=== PATIENT | male | born 1980 | race American Indian/Alaskan Native ===

== ENCOUNTER 2018-06-19 04:55 | Inpatient (IN) | payer SELFPAY ==
[2018-06-19] MEDS ORDERED: NARCAN 2 MG/2 ML ONE (05:03)
[2018-06-19] MEDS ORDERED: NACL 0.9% 1000 ML 1,000 ML IV ONE (05:13)
--- NOTE | 2018-06-19 05:25 | Emergency Department Report ---
ED General Adult HPI - General Stated complaint: UNRESPONSIVE Time Seen by Provider: 06/19/18 05:18 - History of Present Illness Initial comments: Patient is a 28-year-old male. History is limited by medical condition. Patient was found unconscious. Patient was found down in the bathroom pupils are pinpoint he was given 2 mg of Narcan by EMS. - Related Data Allergies Allergy/AdvReac Type Severity Reaction Status Date / Time Unable to Assess Allergy Unverified 06/19/18 05:55 ED Review of Systems ROS: Stated complaint: UNRESPONSIVE Other details as noted in HPI Comment: Unobtainable due to pts medical conditions ED Physical Exam - General General appearance: alert, in no apparent distress - Head Head exam: Present: atraumatic, normocephalic - Eye Eye exam: Present: other (pin point pupils ) - ENT ENT exam: Present: mucous membranes moist - Neck Neck exam: Present: normal inspection - Respiratory Respiratory exam: Present: normal lung sounds bilaterally. Absent: respiratory distress - Cardiovascular Cardiovascular Exam: Present: regular rate, normal rhythm. Absent: systolic murmur, diastolic murmur, rubs, gallop - GI/Abdominal GI/Abdominal exam: Present: soft, normal bowel sounds - Rectal Rectal exam: Present: deferred - Extremities Exam Extremities exam: Present: normal inspection - Back Exam Back exam: Present: normal inspection - Neurological Exam Neurological exam: Present: alert, oriented X3 - Psychiatric Psychiatric exam: Present: normal affect, normal mood - Skin Skin exam: Present: warm, dry, intact, normal color. Absent: rash ED Course Vital Signs 06/19/18 05:54 Pulse Rate 73 Blood Pressure 137/93 O2 Sat by Pulse 100 Oximetry - Intubation Time Out Performed: Yes Sedative: Etomidate Paralytic: Succinylcholine Laryngoscope: Stacy Size: 3 ET Tube Size: 7.5 Tube Secured Depth (cm): 24 Tube Secured Location: teeth Tube Placement Confirmation: visualized tube passing t, equal breath sounds bilat, no breath sounds over epi ED Medical Decision Making - Lab Data Result diagrams: 06/19/18 05:34 06/19/18 05:34 - Radiology Data Radiology results: report reviewed Chest x-ray: Shows no acute cardiopulmonary disease - Medical Decision Making Chief medical diagnosis: Opioid ingestion Differential medical diagnosis: Electrolyte abnormality, toxic ingestion, hypercapnia I will intubate patient will get blood work and will get ct scan of head. Critical care attestation.: If time is entered above; I have spent that time in minutes in the direct care of this critically ill patient, excluding procedure time. ED Disposition Clinical Impression: Encephalocele Respiratory failure Qualifiers: Chronicity: acute Respiratory failure complication: hypercapnia Qualified Code(s): J96.02 - Acute respiratory failure with hypercapnia Disposition: 09 OP ADMIT IP TO THIS HOSP Is pt being admited?: Yes Does the pt Need Aspirin: No Condition: Stable
[2018-06-19] MEDS ORDERED: VASELINE LIP THERAPY TP PRN (05:39)
[2018-06-19] MEDS ORDERED: ARTIFICIAL TEARS OPHTH OINT OU PRN (05:39)
[2018-06-19 05:54] LABS: Basophils % (Auto) 0.5 % (0.0-1.8); Eosinophils # (Auto) 0.3 K/mm3 (0.0-0.4); Eosinophils % (Auto) 3.3 % (0.0-4.3); Hematocrit 42.4 % (35.5-45.6); Lymphocytes # (Auto) 2.7 K/mm3 (1.2-5.4); Lymphocytes % (Auto) 33.6 % (13.4-35.0); Mean Corpuscular HGB Conc 33 % (32-34); Mean Corpuscular Volume 85 fl (84-94); Monocytes # (Auto) 0.8 K/mm3 (0.0-0.8); Platelet Count 323 K/mm3 (140-440); Red Blood Count 4.97 M/mm3 (3.65-5.03)
[2018-06-19] MEDS ORDERED: DIPRIVAN 10 MG/ML 1,000 MG/100 ML BOTTLE IV SCH (06:00)
[2018-06-19 06:06] LABS: Partial Thromboplastin Time 27.9 Sec. (24.2-36.6)
[2018-06-19 06:27] LABS: Alanine Aminotransferase 40 units/L (7-56); Albumin 4.4 g/dL (3.9-5); BUN/Creatinine Ratio 21; Blood Urea Nitrogen 21 mg/dL (9-20); Calcium 8.9 mg/dL (8.4-10.2); Hemolysis Index 29
--- NOTE | 2018-06-19 06:27 | XRay Report ---
PROCEDURE: XR CHEST 1V AP TECHNIQUE: Chest radiograph single view. HISTORY: ETT placement COMPARISONS: 06/19/2018 . FINDINGS: Heart: The heart is mildly enlarged.. Mediastinum/Vessels: The lungs remain diffusely congested.. Lungs/Pleural space: There is bilateral interstitial edema. Pleural fluid is not seen.. Bony thorax: No acute osseous abnormality. Life support devices: The endotracheal tube is not seen on the image.. IMPRESSION: Stable pulmonary congestion with interstitial edema. The ET tube is not seen on the imag e.. This document is electronically signed by Flo Raza MD., June 19 2018 05:51:00 AM ET
[2018-06-19 06:28] LABS: INR 1.2 (0.87-1.13)
[2018-06-19] MEDS ORDERED: NARCAN 2 MG/2 ML IV ONE (06:58)
[2018-06-19] MEDS ORDERED: KETALAR ONE (07:20)
[2018-06-19] MEDS ORDERED: QUELICIN ONE (07:20)
[2018-06-19] MEDS ORDERED: AMIDATE IV ONE (07:20)
--- NOTE | 2018-06-19 07:42 | Emergency Department Report ---
Katherine Doc - Documentation Documentation: 28-year-old male who has been called to the hospitalist staff ready for admissi on. They requested that the patient receive a CT of his head prior to accepting the admission per Dr. Zimmerman. Therefore this task was signed out to me. In the interim the patient became quite agitated and the nurses informed me. He was given ketamine and rocuronium IV to facilitate his CT scan. He does have persistent miotic pupils. However the nurses report to me that he was moving all extremities normally. On exam his endotracheal tube is in place and he is being ventilated. His pulse oximetry read 96% after initial sedation with bolus propofol. He has now had a CT scan. I have checked his endotracheal tube placement. The tube seems a bit small size but is in his trachea. He also did have interstitial edema. I do not see any acute finding on his CT head which was grossly evident. Therefore he will be called into the hospitalist service again for further care and evaluation. Critical care time with this patient is 40 minutes.
--- NOTE | 2018-06-19 07:49 | XRay Report ---
PROCEDURE: XR CHEST 1V AP TECHNIQUE: Chest radiograph single view. HISTORY: once COMPARISONS: 06/19/2018 . FINDINGS: Heart: The heart is mildly enlarged.. Mediastinum/Vessels: The lungs are no longer congested.. There is slight thickening of the right para tracheal stripe. Adenopathy cannot be excluded. Lungs/Pleural space: There is residual patchy airspace disease in the right upper lobe.. Bony thorax: No acute osseous abnormality. Life support devices: The tip of the ET tube is 6 cm above the eliceo. The NG tube is noted coursing into the stomach.. IMPRESSION: Cardiomegaly with interval resolution of pulmonary congestion. Residual patchy airspace disease in th e right upper lobe noted. Thickening of the right paratracheal stripe noted. Adenopathy cannot be excluded. Computed tomography of the chest with IV contrast recommended for further evaluation. Positions of the ET tube and NG tube as described. This document is electronically signed by Flo Raza MD., June 19 2018 06:55:19 AM ET
[2018-06-19 07:50] LABS: Bilirubin,Urine NEG (Negative); Blood,Urine NEG (Negative); Color,Urine Yellow (Yellow); Mucus,Urine 1+ /HPF; Urobilinogen,Urine < 2.0 mg/dL (<2.0)
[2018-06-19 07:59] LABS: Benzodiazepines Screen,Urine PRESUMPTIVE NEGATIVE; Cannabinoid Screen,Urine PRESUMPTIVE NEGATIVE; Cocaine Screen,Urine PRESUMPTIVE NEGATIVE; Methadone Screen,Urine PRESUMPTIVE NEGATIVE; Opiate Screen,Urine PRESUMPTIVE NEGATIVE
[2018-06-19 08:17] LABS: Amphetamine Screen,Urine PRESUMPTIVE POSITIVE
--- NOTE | 2018-06-19 08:47 | Cat Scan Report ---
PROCEDURE: CT HEAD/BRAIN WO CON TECHNIQUE: Computerized tomography of the head was performed without contrast material. HISTORY: Altered Mental Status COMPARISONS: None . FINDINGS: The ventricles, cisterns and sulci are within normal limits. No intra parenchymal or extra-axial mas s, hemorrhage, or mass effect. Echavarria and white-matter differentiation is within normal limits. Normal spherical shape of the globes. No significant abnormalities within the paranasal sinuses and m astoid air cells. Mild mucosal thickening within the partially and left maxillary sinus. Mucosal thic kening within the nasal passages extends into the posterior nasopharynx, also partially imaged and as sociated with intubation. No skull or facial fracture visualized. IMPRESSION: No acute intracranial abnormality. This document is electronically signed by Malachi Garcia MD., June 19 2018 07:42:15 AM ET
[2018-06-19] MEDS ORDERED: HALDOL IV PRN (10:10)
[2018-06-19] MEDS ORDERED: BENADRYL IV PRN (10:11)
[2018-06-19] MEDS ORDERED: ATIVAN IV PRN (10:11)
[2018-06-19] MEDS ORDERED: ZOFRAN IV PRN (12:54)
[2018-06-19] MEDS ORDERED: SODIUM CHLORIDE FLUSH SYRINGE 10 ML IV PRN (12:54)
[2018-06-19] MEDS ORDERED: APRESOLINE IV PRN (12:57)
[2018-06-19] MEDS ORDERED: NACL 0.45% 500 ML IV SCH (13:00)
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
[2018-06-19] MEDS: SODIUM CHLORIDE FLUSH SYRINGE 10 ML IV SCH (22:45)
[2018-06-20 07:41] LABS: Basophils % (Auto) 0.3 % (0.0-1.8); Eosinophils # (Auto) 0.5 K/mm3 (0.0-0.4); Eosinophils % (Auto) 4.2 % (0.0-4.3); Hematocrit 40.1 % (35.5-45.6); Hemoglobin 13.4 gm/dl (11.8-15.2); Lymphocytes # (Auto) 2.8 K/mm3 (1.2-5.4); Lymphocytes % (Auto) 22.7 % (13.4-35.0); Mean Corpuscular HGB Conc 34 % (32-34); Mean Corpuscular Volume 84 fl (84-94); Monocytes % (Auto) 8.3 % (0.0-7.3); Platelet Count 300 K/mm3 (140-440); Red Blood Count 4.75 M/mm3 (3.65-5.03); Red Cell Distribution Width 13.9 % (13.2-15.2)
[2018-06-20 07:59] LABS: BUN/Creatinine Ratio 16; Blood Urea Nitrogen 14 mg/dL (9-20); Calcium 8.7 mg/dL (8.4-10.2); Hemolysis Index 7
--- NOTE | 2018-06-20 09:10 | XRay Report ---
PROCEDURE: XR CHEST ROUTINE 2V TECHNIQUE: Chest, PA and lateral HISTORY: abnormal cxr COMPARISON: 06/19/2018 FINDINGS: The heart size is normal. There is no pulmonary vascular congestion seen. Mediastinal contours are normal. Lungs are clear. Previously seen right upper lobe infiltrate has resolved. There is no pleural effusion seen. There is no pneumothorax seen. IMPRESSION: No acute abnormality identified. This document is electronically signed by America Patel MD., June 20 2018 09:08:40 AM ET
[2018-06-20] MEDS: TYLENOL PO PRN (11:06)
[2018-06-20] MEDS: SODIUM CHLORIDE FLUSH SYRINGE 10 ML IV SCH ×2 (11:06→21:24)
--- NOTE | 2018-06-20 14:01 | Progress Note ---
Assessment and Plan Assessment and plan: Possible PNA, probably aspiration -On IV levofloxacin -sputum culture pending Acute toxic encephalopathy -Secondary to amphetamine use -resolved -Head CT scan negative Flash pulmonary edema -Resolved Impending respiratory failure with hypoxia -Status post intubation, now extubated Mild hyperkalemia -resolved Elevated blood pressure without prior diagnosis of hypertension -Blood pressure improved, will monitor Polysubstance abuse(tobacco and amphetamine) -pt reported using her sister's phentanyl patch prior to the incident bs he was having severe back pain -pt counseled on cessation Chronic lower back pain -for out-pt f/u DVT prophylaxis with SCD Disposition: For possible d/c in 1-2 days if clinically stable History Interval history: Pt complained of productive cough with some blood specks. Hospitalist Physical - Constitutional Vitals: Temp Pulse Resp BP Pulse Ox 98.6 F 89 18 128/84 97 06/20/18 09:13 06/20/18 09:13 06/20/18 09:13 06/20/18 09:13 06/20/18 09:13 General appearance: Present: no acute distress, well-nourished - EENT Eyes: Present: PERRL, EOM intact ENT: hearing intact, clear oral mucosa - Neck Neck: Present: supple - Respiratory Respiratory effort: normal Respiratory: bilateral: CTA - Cardiovascular Rhythm: regular Heart Sounds: Present: S1 & S2 - Extremities Extremities: No edema - Abdominal General gastrointestinal: soft, non-tender, non-distended, normal bowel sounds - Neurologic Neurologic: CNII-XII intact Results - Labs CBC & Chem 7: 06/20/18 07:00 06/20/18 07:00 Labs: Laboratory Last Values WBC 12.4 K/mm3 (4.5-11.0) H 06/20/18 07:00 RBC 4.75 M/mm3 (3.65-5.03) 06/20/18 07:00 Hgb 13.4 gm/dl (11.8-15.2) 06/20/18 07:00 Hct 40.1 % (35.5-45.6) 06/20/18 07:00 MCV 84 fl (84-94) 06/20/18 07:00 MCH 28 pg (28-32) 06/20/18 07:00 MCHC 34 % (32-34) 06/20/18 07:00 RDW 13.9 % (13.2-15.2) 06/20/18 07:00 Plt Count 300 K/mm3 (140-440) 06/20/18 07:00 Lymph % (Auto) 22.7 % (13.4-35.0) 06/20/18 07:00 [place] % (Auto) 8.3 % (0.0-7.3) H 06/20/18 07:00 Eos % (Auto) 4.2 % (0.0-4.3) 06/20/18 07:00 Baso % (Auto) 0.3 % (0.0-1.8) 06/20/18 07:00 Lymph # 2.8 K/mm3 (1.2-5.4) 06/20/18 07:00 [place] # 1.0 K/mm3 (0.0-0.8) H 06/20/18 07:00 Eos # 0.5 K/mm3 (0.0-0.4) H 06/20/18 07:00 Baso # 0.0 K/mm3 (0.0-0.1) 06/20/18 07:00 Seg Neutrophils % 64.5 % (40.0-70.0) 06/20/18 07:00 Seg Neutrophils # 8.0 K/mm3 (1.8-7.7) H 06/20/18 07:00 PT 16.0 Sec. (12.2-14.9) H 06/19/18 05:34 INR 1.20 (0.87-1.13) H 06/19/18 05:34 APTT 27.9 Sec. (24.2-36.6) 06/19/18 05:34 POC ABG pH 7.278 (7.35-7.45) L 06/19/18 06:27 POC ABG pCO2 55.7 (35-45) H 06/19/18 06:27 POC ABG pO2 364 (80-105) H 06/19/18 06:27 POC ABG HCO3 26.1 06/19/18 06:27 POC ABG Total CO2 28 06/19/18 06:27 POC ABG O2 Sat 100 06/19/18 06:27 POC ABG Base Excess -1 06/19/18 06:27 FiO2 100 % 06/19/18 06:27 Sodium 138 mmol/L (137-145) 06/20/18 07:00 Potassium 4.1 mmol/L (3.6-5.0) D 06/20/18 07:00 Chloride 100.5 mmol/L (98-107) 06/20/18 07:00 Carbon Dioxide 25 mmol/L (22-30) 06/20/18 07:00 Anion Gap 17 mmol/L 06/20/18 07:00 BUN 14 mg/dL (9-20) 06/20/18 07:00 Creatinine 0.9 mg/dL (0.8-1.5) 06/20/18 07:00 Estimated GFR > 60 ml/min 06/20/18 07:00 BUN/Creatinine Ratio 16 % 06/20/18 07:00 Glucose 87 mg/dL (75-100) 06/20/18 07:00 Lactic Acid 1.00 mmol/L (0.7-2.0) 06/19/18 05:34 Calcium 8.7 mg/dL (8.4-10.2) 06/20/18 07:00 Total Bilirubin 0.50 mg/dL (0.1-1.2) 06/19/18 05:34 AST 119 units/L (5-40) H 06/19/18 05:34 ALT 40 units/L (7-56) 06/19/18 05:34 Alkaline Phosphatase 33 units/L (35-129) L 06/19/18 05:34 Troponin T < 0.010 ng/mL (0.00-0.029) 06/19/18 05:34 Total Protein 8.3 g/dL (6.3-8.2) H 06/19/18 05:34 Albumin 4.4 g/dL (3.9-5) 06/19/18 05:34 Albumin/Globulin Ratio 1.1 % 06/19/18 05:34 Urine Color Yellow (Yellow) 06/19/18 07:09 Urine Turbidity Clear (Clear) 06/19/18 07:09 Urine pH 5.0 (5.0-7.0) 06/19/18 07:09 Ur Specific [place] 1.031 (1.003-1.030) H 06/19/18 07:09 Urine Protein 30 mg/dl mg/dL (Negative) 06/19/18 07:09 Urine Glucose (UA) Neg mg/dL (Negative) 06/19/18 07:09 Urine Ketones Neg mg/dL (Negative) 06/19/18 07:09 Urine Blood Neg (Negative) 06/19/18 07:09 Urine Nitrite Neg (Negative) 06/19/18 07:09 Urine Bilirubin Neg (Negative) 06/19/18 07:09 Urine Urobilinogen < 2.0 mg/dL (<2.0) 06/19/18 07:09 Ur Leukocyte Esterase Neg (Negative) 06/19/18 07:09 Urine WBC (Auto) 1.0 /HPF (0.0-6.0) 06/19/18 07:09 Urine RBC (Auto) 3.0 /HPF (0.0-6.0) 06/19/18 07:09 Urine Mucus 1+ /HPF 06/19/18 07:09 Salicylates < 0.3 mg/dL (2.8-20.0) L 06/19/18 05:34 Urine Opiates Screen Presumptive negative 06/19/18 07:09 Urine Methadone Screen Presumptive negative 06/19/18 07:09 Acetaminophen < 5.0 ug/mL (10.0-30.0) L 06/19/18 05:34 Ur Barbiturates Screen Presumptive negative 06/19/18 07:09 Ur Phencyclidine Scrn Presumptive negative 06/19/18 07:09 Ur Amphetamines Screen Presumptive positive 06/19/18 07:09 U Benzodiazepines Scrn Presumptive negative 06/19/18 07:09 Urine Cocaine Screen Presumptive negative 06/19/18 07:09 U Marijuana (THC) Screen Presumptive negative 06/19/18 07:09 Drugs of Abuse Note Disclamer 06/19/18 07:09 Plasma/Serum Alcohol < 0.01 % (0-0.07) 06/19/18 05:34
[2018-06-20] MEDS: LEVAQUIN 750MG/150ML 750 MG/150 ML BAG IV SCH (18:43)
--- NOTE | 2018-06-20 23:50 | XRay Report ---
XR CHEST 1V AP CLINICAL INDICATION: Male, 38 years of age. Altered Mental Status COMPARISON: None available. Images submitted for interpretation on June 20, 2018 at 2327 hours yesterday. Findings: Frontal view(s) of the chest obtained. Heart borderline enlarged. Shallow inspiration. Mamma Logist wding the bronchovascular markings with prominence of pulmonary vasculature and interstitium concerni ng for mild central congestion. No gross pneumothorax. IMPRESSION: Findings concerning for mild central congestion. This document is electronically signed by Johanna Sheehan DO., June 20 2018 11:48:20 PM ET
[2018-06-21] MEDS: TYLENOL PO PRN (04:46)
[2018-06-21 06:08] LABS: Basophils # (Auto) 0.1 K/mm3 (0.0-0.1); Basophils % (Auto) 0.5 % (0.0-1.8); Eosinophils # (Auto) 0.6 K/mm3 (0.0-0.4); Eosinophils % (Auto) 5.1 % (0.0-4.3); Hematocrit 40.4 % (35.5-45.6); Hemoglobin 13.7 gm/dl (11.8-15.2); Lymphocytes # (Auto) 2.4 K/mm3 (1.2-5.4); Lymphocytes % (Auto) 19.2 % (13.4-35.0); Mean Corpuscular HGB Conc 34 % (32-34); Mean Corpuscular Volume 84 fl (84-94); Monocytes # (Auto) 1.3 K/mm3 (0.0-0.8); Platelet Count 325 K/mm3 (140-440); Red Blood Count 4.79 M/mm3 (3.65-5.03); Red Cell Distribution Width 13.7 % (13.2-15.2)
[2018-06-21] MEDS: LEVAQUIN 750MG/150ML 750 MG/150 ML BAG IV SCH (09:12)
[2018-06-21] MEDS: SODIUM CHLORIDE FLUSH SYRINGE 10 ML IV SCH (09:12)
[2018-06-21 11:50] VITALS: BP 113/71
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
== END 2018-06-21 15:27 | disposition home or self-care (01) | DRG 208 ==
LOC: ED 04:55 → EDBD 07:54 → CC1 07:54 → 4A 12:13
PROVIDERS: ADMIT Internal Medicine; ATTEND Internal Medicine
PROC: 4A033R1 Measurement of Arterial Saturation, Peripheral, Percutaneous Approach (ICD-10-PCS; principal; 2018-06-19)
PROC: 5A1935Z Respiratory Ventilation, Less than 24 Consecutive Hours (ICD-10-PCS; 2018-06-19)
PROC: 0BH17EZ Insertion of Endotracheal Airway into Trachea, Via Natural or Artificial Opening (ICD-10-PCS; 2018-06-19)
DX: J69.0 Pneumonitis due to inhalation of food and vomit (principal); G92 Toxic encephalopathy; J96.02 Acute respiratory failure with hypercapnia; Q01.9 Encephalocele, unspecified; F17.210 Nicotine dependence, cigarettes, uncomplicated; T43.625A Adverse effect of amphetamines, initial encounter; Y92.89 Other specified places as the place of occurrence of the external cause; E87.5 Hyperkalemia; F15.10 Other stimulant abuse, uncomplicated; M54.5 Low back pain; G89.29 Other chronic pain; R03.0 Elevated blood-pressure reading, without diagnosis of hypertension
CPT/HCPCS: 36415; 70450; 71045; 71046; 80048; 80053; 80307; 80320; 81001; 82140; 82803; 84484; 85025; 85610; 85730; 87205; 94002; 99406; G0378; G0480; J0330; J1956; J2310; J2704; J7030

== ENCOUNTER 2018-08-25 22:36 | Emergency (ER) | payer OTHER ==
[2018-08-25] MEDS ORDERED: IBUPROFEN PO ONE (23:51)
--- NOTE | 2018-08-25 23:51 | Emergency Department Report ---
ED Rash HPI - HPI Chief Complaint: Skin/Abscess/Foreign Body Stated Complaint: SPIDER BITE Time Seen by Provider: 08/25/18 23:27 Duration: 2 Days Location: Upper Extremities Suspected Cause: Unknown Rash Symptoms: Yes Blistering, Yes Fever, No Itching, No Facial Swelling, No Tongue/Oral Swelling, No Breathing Difficulties, No Choking Sensation, No Wheezing/Dyspnea, No Peeling, No Lightheaded, No Malaise, No Myalgias Severity: mild Other History: Mrs. Armenta is a 38-year-old male who presents with that by possible spider bite at the right upper bicep. Lesion has been present for the past 2 days. 3 cm in size Low-grade temperature noticed in triage ED Review of Systems ROS: Stated complaint: SPIDER BITE Other details as noted in HPI Constitutional: fever. denies: malaise Skin: rash, lesions, change in color ED Past Medical Hx - Past Medical History Previous Medical History?: Yes Hx Psychiatric Treatment: Yes (alcohol abuse) Additional medical history: pt unresponsive, unable to ubtain - Surgical History Past Surgical History?: No - Social History Smoking Status: Current Every Day Smoker Substance Use Type: Alcohol - Medications Home Medications: Home Medications Medication Instructions Recorded Confirmed Last Taken Type levoFLOXacin [Levaquin] 750 mg PO QDAY #3 tablet 06/21/18 Unknown Rx Neomycn/Bacitrc/Polymyx/Pramox 1 applic TP BID 10 Days #1 08/25/18 Unknown Rx [Triple Antibiotic Plus Ointmnt] oint...g. Sulfamethoxazole/Trimethoprim 1 each PO BID 10 Days #20 tablet 08/25/18 Unknown Rx [Bactrim DS TAB] Rash Exam - Exam General: Vital signs noted. No distress. Alert and acting appropriately. HEENT: No Periorbital Edema, No Conjuctival Injection, No Chemosis, No Perioral Edema, No Tongue Edema, No Uvular Edema, No Compromised Airway, No Drooling Lungs: No Wheezes, No Ronchi, No Stridor, No Cough, No Labored Respirations, No Retractions, No Use of Accessory Muscles Skin: No Other (3 cm area of redness with central necrotic ulcer) Other: Positive: Neurologic Normal ED Course Vital Signs 08/25/18 08/25/18 22:52 23:22 Temperature 100.0 F H Pulse Rate 112 H Respiratory 20 16 Rate Blood Pressure 134/82 [Right] O2 Sat by Pulse 99 Oximetry ED Medical Decision Making - Medical Decision Making Mr. Armenta presents with a suspected spider bite and small area of surrounding cellulitis. Prescribed Bactrim and antibiotic ointment. Critical care attestation.: If time is entered above; I have spent that time in minutes in the direct care of this critically ill patient, excluding procedure time. ED Disposition Clinical Impression: Spider bite wound, Cellulitis of right arm Disposition: DC-01 TO HOME OR SELFCARE Is pt being admited?: No Does the pt Need Aspirin: No Condition: Stable Instructions: Brown Recluse Spider Bite (ED) Prescriptions: Sulfamethoxazole/Trimethoprim [Bactrim DS TAB] 1 each PO BID 10 Days #20 tablet Neomycn/Bacitrc/Polymyx/Pramox [Triple Antibiotic Plus Ointmnt] 1 applic TP BID 10 Days #1 oint...g.
[2018-08-25] MEDS ORDERED: BACTRIM DS PO ONE (23:52)
[2018-08-26 00:57] VITALS: BP 126/81
== END 2018-08-26 00:15 | disposition home or self-care (01) ==
LOC: ED 22:36
DX: T63.301A Toxic effect of unspecified spider venom, accidental (unintentional), initial encounter (principal); L03.113 Cellulitis of right upper limb; Y92.9 Unspecified place or not applicable
CPT/HCPCS: 99282

== ENCOUNTER 2019-06-07 12:41 | Emergency (ER) | payer SELFPAY ==
[2019-06-07 13:17] VITALS: BP 158/72
--- NOTE | 2019-06-07 13:19 | Event Note ---
ED Screening Note ED Screening Note: states that he smoked "alot of marijuana last night" drank alcohol last night states he is "going crazy" no SI/HI no hallucinations exhibiting very strange behavior disorganized speech exhibiting paranoia This initial assessment/diagnostic orders/clinical plan/treatment(s) is/are subject to change based on patients health status, clinical progression and re- assessment by fellow clinical providers in the ED. Further treatment and workup at subsequent clinical providers discretion. Patient/guardian urged not to elope from the ED as their condition may be serious if not clinically assessed and managed. Initial orders include: medical clearance for psych will send to MAIN
[2019-06-07 14:37] LABS: Bilirubin,Urine NEG (Negative); Blood,Urine SM (Negative); Color,Urine Yellow (Yellow); Mucus,Urine 1+ /HPF; Sperm,Urine 2+ /HPF (NP); Urobilinogen,Urine < 2.0 mg/dL (<2.0)
[2019-06-07 14:42] LABS: Cocaine Screen,Urine PRESUMPTIVE NEGATIVE; Methadone Screen,Urine PRESUMPTIVE NEGATIVE; Opiate Screen,Urine PRESUMPTIVE NEGATIVE
[2019-06-07 15:00] LABS: Amphetamine Screen,Urine PRESUMPTIVE POSITIVE; Benzodiazepines Screen,Urine PRESUMPTIVE POSITIVE; Cannabinoid Screen,Urine PRESUMPTIVE POSITIVE
== END 2019-06-07 19:30 | disposition left against medical advice (07) ==
LOC: ED 12:41
DX: F22 Delusional disorders (principal); Z53.21 Procedure and treatment not carried out due to patient leaving prior to being seen by health care provider
CPT/HCPCS: 80307; 81001; 87086

== ENCOUNTER 2021-02-18 18:42 | Emergency (ER) | payer SELFPAY ==
[2021-02-18 19:52] LABS: Basophils # (Auto) 0.1 K/mm3 (0.0-0.1); Basophils % (Auto) 0.5 % (0.0-1.8); Eosinophils # (Auto) 0.1 K/mm3 (0.0-0.4); Eosinophils % (Auto) 0.9 % (0.0-4.3); Hematocrit 45.1 % (35.5-45.6); Hemoglobin 14.9 gm/dl (11.8-15.2); Lymphocytes # (Auto) 2.4 K/mm3 (1.2-5.4); Lymphocytes % (Auto) 21.6 % (13.4-35.0); Mean Corpuscular HGB Conc 33 % (32-34); Mean Corpuscular Volume 85 fl (84-94); Monocytes # (Auto) 1.2 K/mm3 (0.0-0.8); Monocytes % (Auto) 10.5 % (0.0-7.3); Platelet Count 499 K/mm3 (140-440); Red Blood Count 5.31 M/mm3 (3.65-5.03); Red Cell Distribution Width 12.9 % (13.2-15.2)
[2021-02-18 20:46] LABS: Calcium 9.5 mg/dL (8.4-10.2)
[2021-02-18 20:58] LABS: Free T4 (Free Thyroxine) 1.4 ng/dL (0.76-1.46)
[2021-02-18] MEDS ORDERED: diphenhydrAMINE 50 MG/ML VIAL IV ONE (21:30)
--- NOTE | 2021-02-18 21:33 | Emergency Department Report ---
ED Psych HPI - General Chief Complaint: Psych Stated Complaint: MENTAL EVALUATION Time Seen by Provider: 02/18/21 20:04 Source: EMS Mode of arrival: Ambulatory - History of Present Illness Initial Comments: Patient is 41 years old male with history of schizophrenia. Patient brought to the emergency room by his family for mental health evaluation. Patient stated that he is having auditory and visual hallucination. Patient stated that he used methamphetamine and marijuana recently and that make it worse. Patient is currently denying any suicidal or homicidal ideation. Patient with significant tardive dyskinesia. MD Complaint: altered mental status -: days(s) Associated Psychiatric Symptoms: racing thoughts, auditory hallucinations, visual hallucinations Quality: constant Context: recent drug abuse Associated Symptoms: denies other symptoms Treatments Prior to Arrival: none - Related Data Previous Rx's Medication Instructions Recorded Last Taken Type levoFLOXacin [Levaquin] 750 mg PO QDAY #3 tablet 06/21/18 Unknown Rx Neomycn/Bacitrc/Polymyx/Pramox 1 applic TP BID 10 Days #1 08/25/18 Unknown Rx [Triple Antibiotic Plus Ointmnt] oint...g. Sulfamethoxazole/Trimethoprim 1 each PO BID 10 Days #20 tablet 08/25/18 Unknown Rx [Bactrim DS TAB] propranoloL [Inderal] 20 mg PO BID 10 Days #60 tablet 02/19/21 Unknown Rx Allergies Allergy/AdvReac Type Severity Reaction Status Date / Time Penicillins AdvReac Hives Verified 02/18/21 18:55 ED Review of Systems ROS: Stated complaint: MENTAL EVALUATION Other details as noted in HPI Comment: All other systems reviewed and negative Constitutional: denies: chills, fever Respiratory: denies: cough, shortness of breath, SOB with exertion, SOB at rest Cardiovascular: denies: chest pain, palpitations Gastrointestinal: denies: abdominal pain, nausea, vomiting Neurological: denies: headache, weakness, numbness, paresthesias, confusion, abnormal gait Psychiatric: auditory hallucinations, visual hallucinations. denies: homicidal thoughts, suicidal thoughts ED Past Medical Hx - Past Medical History Hx Psychiatric Treatment: Yes (alcohol abuse) Additional medical history: pt unresponsive, unable to ubtain. bi-polar schizophrenia - Social History Smoking Status: Current Every Day Smoker Substance Use Type: Alcohol, Marijuana - Medications Home Medications: Home Medications Medication Instructions Recorded Confirmed Last Taken Type levoFLOXacin [Levaquin] 750 mg PO QDAY #3 tablet 06/21/18 02/18/21 Unknown Rx Neomycn/Bacitrc/Polymyx/Pramox 1 applic TP BID 10 Days #1 08/25/18 02/18/21 Unknown Rx [Triple Antibiotic Plus Ointmnt] oint...g. Sulfamethoxazole/Trimethoprim 1 each PO BID 10 Days #20 tablet 08/25/18 02/18/21 Unknown Rx [Bactrim DS TAB] propranoloL [Inderal] 20 mg PO BID 10 Days #60 tablet 02/19/21 Unknown Rx ED Physical Exam - General Limitations: No Limitations General appearance: alert, in no apparent distress - Head Head exam: Present: atraumatic, normocephalic, normal inspection - Eye Eye exam: Present: normal appearance, PERRL - ENT ENT exam: Present: normal exam, normal orophraynx, mucous membranes moist - Neck Neck exam: Present: normal inspection, full ROM. Absent: tenderness, meningismus - Respiratory Respiratory exam: Present: normal lung sounds bilaterally - Cardiovascular Cardiovascular Exam: Present: regular rate, normal rhythm, normal heart sounds - GI/Abdominal GI/Abdominal exam: Present: soft, normal bowel sounds. Absent: distended, tenderness, guarding, rebound, rigid, organomegaly (Admit), mass, bruit, pulsatile mass, hernia - Extremities Exam Extremities exam: Present: normal inspection, full ROM, normal capillary refill. Absent: tenderness - Back Exam Back exam: Present: normal inspection, full ROM. Absent: CVA tenderness (R), CVA tenderness (L) - Neurological Exam Neurological exam: Present: alert, oriented X3, CN II-XII intact, normal gait, reflexes normal - Psychiatric Psychiatric exam: Present: anxious. Absent: homicidal ideation, suicidal ideation - Skin Skin exam: Present: warm, intact, normal color ED Course Vital Signs 02/18/21 02/19/21 02/19/21 18:54 11:01 11:11 Temperature 98.3 F 98.5 F Pulse Rate 115 H 96 H Respiratory 16 16 Rate Blood Pressure Blood Pressure 101/72 134/87 [Right] O2 Sat by Pulse 96 100 100 Oximetry 02/19/21 11:57 Temperature Pulse Rate 96 H Respiratory Rate Blood Pressure 134/87 Blood Pressure [Right] O2 Sat by Pulse Oximetry ED Medical Decision Making - Lab Data Result diagrams: 02/18/21 19:09 02/18/21 19:09 Critical care attestation.: If time is entered above; I have spent that time in minutes in the direct care of this critically ill patient, excluding procedure time. ED Disposition Clinical Impression: Schizophrenia, Mood disorder, Substance abuse Disposition: HOME / SELF CARE / HOMELESS Is pt being admited?: No Condition: Stable Instructions: Substance Use Disorder and Mental Illness Additional Instructions: Professional and Agency Contacts To help [facility](10/11) [place] Crisis Line: Suicide Prevention Line: Crisis Text Line: Text START to [phone] Emergency: 911 Outpatient COMMUNITY Behavioral Health Resources: YOAV: [facility] [address] [place], [place] [address] JOHN: [facility] [address] [place] [address] PRAVEEN: [facility] - [address] [place] [address] Thursday thru Thursday - 8am - 5pm [facility] Address: [address] [place] [address] TEMI: [facility] Address: [address] [place] [address] Thursday thru Thursday- 7am-2pm [facility] Address: [address] [place] [address] Thursday thru Thursday: 8:30AM-5PM Prescriptions: propranoloL [Inderal] 20 mg PO BID 10 Days #60 tablet Referrals: PRIMARY CARE,MD [Primary Care Provider] - 3-5 Days
[2021-02-18] MEDS ORDERED: SODIUM CHLORIDE 0.9% 1000 ML 1,000 ML IV ONE (22:33)
[2021-02-19 02:16] LABS: Bilirubin,Urine NEG (Negative); Blood,Urine NEG (Negative); Color,Urine Yellow (Yellow); Mucus,Urine 1+ /HPF
[2021-02-19 02:25] LABS: Amphetamine Screen,Urine PRESUMPTIVE POSITIVE; Benzodiazepines Screen,Urine PRESUMPTIVE NEGATIVE; Cannabinoid Screen,Urine PRESUMPTIVE POSITIVE; Cocaine Screen,Urine PRESUMPTIVE NEGATIVE; Methadone Screen,Urine PRESUMPTIVE NEGATIVE; Opiate Screen,Urine PRESUMPTIVE NEGATIVE
[2021-02-19] MEDS ORDERED: diphenhydrAMINE 50 MG/ML VIAL IV ONE (03:39)
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
[2021-02-19 11:02] VITALS: BP 134/87
[2021-02-19] MEDS ORDERED: PROPRANOLOL 10 MG TAB PO NR (12:00)
--- NOTE | 2021-02-19 12:21 | Event Note ---
Date: 02/19/21 Patient is calm and cooperative. Denies any SI, HI, hallucinations. Patient seen, evaluated, and cleared by psychiatry team. Outpatient follow-up information given. Patient will be discharged at this time.
== END 2021-02-19 12:47 | disposition home or self-care (01) ==
LOC: ED 18:42 → EEVIPCON 18:42 → ED 02-19 12:47
DX: F20.9 Schizophrenia, unspecified (principal); F39 Unspecified mood [affective] disorder; F19.10 Other psychoactive substance abuse, uncomplicated; F17.200 Nicotine dependence, unspecified, uncomplicated; F12.10 Cannabis abuse, uncomplicated
CPT/HCPCS: 36415; 80048; 80307; 81001; 82550; 84439; 84443; 85025; 96361; 96374; 99284; J1200; J7030; 80320; G0480